=== PATIENT | female | born 1955 | race American Indian/Alaskan Native ===

== ENCOUNTER 2016-11-03 12:07 | Observation (INO) | payer BC ==
[2016-11-03] MEDS ORDERED: TYLENOL ONE ×2 (12:19→17:56)
[2016-11-03] MEDS ORDERED: TYLENOL PO ONE (12:22)
[2016-11-03 12:49] LABS: Basophils % (Auto) 0.6 % (0.0-1.8); Eosinophils % (Auto) 3.7 % (0.0-4.3); Hematocrit 36.1 % (30.3-42.9); Hemoglobin 11.8 gm/dl (10.1-14.3); Mean Corpuscular HGB Conc 33 % (30-34); Mean Corpuscular Hemoglobin 28 pg (28-32); Mean Corpuscular Volume 86 fl (79-97); Platelet Count 191 K/mm3 (140-440); Red Cell Distribution Width 15.5 % (13.2-15.2); White Blood Count 6.5 K/mm3 (4.5-11.0)
[2016-11-03 13:04] LABS: Anion Gap 18 mmol/L; BUN/Creatinine Ratio 24.28; Blood Urea Nitrogen 17 mg/dL (7-17); Carbon Dioxide 24 mmol/L (22-30); Chloride 104.1 mmol/L (98-107); Glucose 105 mg/dL (65-100); Potassium 3.7 mmol/L (3.6-5.0); Sodium 142 mmol/L (137-145)
[2016-11-03] MEDS ORDERED: NORMODYNE IV ONE (13:34)
[2016-11-03] MEDS ORDERED: ZOFRAN IV ONE (13:46)
--- NOTE | 2016-11-03 13:58 | Admit Criteria Form ---
Admission Criteria Documentation: CHEST PAIN Clinical Indications for Admission to Inpatient Care (Place 'X' for any and all applicable criteria): Admission is indicated for chest pain and ANY ONE of the following(1)(2)(3)(4)(5 ): [ ]I. Angina with acute coronary syndrome (Also use Myocardial Infarction or Angina guideline) [ ]II. Hemodynamic instability [ ]III. Angina needing acute intervention as indicated by ALL of the following( 11)(12): [ ]a) Unstable angina is present as indicated by angina that is ANY ONE of the following: [ ]i) New onset [ ]ii) Nocturnal [ ]iii) Prolonged at rest [ ]iv) Progressive [ ]b) Angina warrants acute intervention as indicated by ANY ONE of the following: [ ]i) Recurrent angina (e.g, not responding as previously to treatment) [ ]ii) Angina at rest or with low-level activities despite initial medical therapy [ ]iii) New or presumably new ST-segment depression on ECG [ ]iv) Signs or symptoms of heart failure (eg, dyspnea, pulmonary edema) [ ]v) New or worsening mitral regurgitation [ ]vi) Hemodynamic instability [ ]vii) Dangerous arrhythmia (eg, sustained ventricular tachycardia) [ ]viii) History of percutaneous coronary intervention within 6 months [ ]ix) History of coronary artery bypass graft surgery [ ]x) TABITHA risk score of 2 or greater[A] [ ]xi) History of Diabetes(14) [ ]xii) High-risk cardiac ischemia findings on noninvasive testing (e.g, echocardiogram, treadmill testing, nuclear scan) [ ]xiii) Chronic renal insufficiency (ie, estimated GFR less than 60 mL/min/1.732m) [ ]xiv) Left ventricular ejection fraction less than 40% [ ]IV. Evidence of TX (eg, cardiac biomarkers positive, ST-segment elevation on ECG) also use Myocardial Infarction Criteria Form. [ ]V. Pulmonary edema [ ]. Respiratory distress [ ]VII. Chest pain indicative of serious diagnosis other than coronary artery disease (eg, aortic dissection) [ ]VIII. Contraindications and/or Inappropriate clinical situations for Observational Care in patients with Chest Pain, when ANY ONE of the following is required: [ ]a) Patient with risk factor for pulmonary embolism, acute coronary syndrome and myocardial infarction (18) [ ]b) Patient with Pulmonary embolism require an average LOS of 4.3 days, therefore emergency department observation management is inappropriate 18,23 [ ]c) Painful condition/s in the elderly, have the highest rate of recidivism after emergency department observation management (10.8%) 20,21,22 [ ]d) Elevated cardiac biomarker requires intensive and exhaustive care (19) [X]IX. General contraindications and/or Inappropriate clinical situations for Observational Care in patients with Chest Pain, when ANY ONE of the following is required: [ ]a) Prediction of prolongation of LOS based on ANY ONE of the following may be considered as a contraindication for observational care 2, 3, 4, 5, 6, 7, 8, 9, 10, 11 [ ]i) Age > 65 yrs. [ ]ii) Patient arriving by ambulance [ ]iii) Patient with high acuity [ ]iv) Patient requiring vital sign monitoring [ ]v) Patient on IV medication [X]b) Systolic blood pressures 180mmHg 3,12 [ ]c) Patient with altered mental status including delirium and other alteration of consciousness, (3) [ ]d) Patient whose discharge disposition will be to a long term home or rehabilitation home should not be managed in Emergency Department Observation Unit. CMS rule requires 3 days hospital stay before such placement. 3,13 [ ]e) Patient with failure to thrive due to broad array of etiologies 3,16,17 [ ]f) Inability to ambulate 3,14 Extended stay beyond goal length of stay may be needed for (1)(28): [ ]a) Specific condition diagnosed after evaluation (eg, pulmonary embolism, aortic dissection) [ ]b) Unstable angina [ ]c) Continued suspicion of acute coronary syndrome with inability to complete needed cardiac evaluation (eg, patient clinically unable to undergo stress testing) [ ]d) Myocardial infarction (Contents from ANGINA and CHEST PAIN clinical indications for admission to inpatient care have been integrated in this form) The original [facility] content created by [employer] has been revised. The portions of the content which have been revised are identified through the use of italic text or in bold, and [facility] has neither reviewed nor approved the modified material. All other unmodified content is copyright [facility]. Please see references footnoted in the original [facility] edition 2016 Admission Criteria Met: Yes
--- NOTE | 2016-11-03 14:28 | Emergency Department Report ---
HPI - General Chief Complaint: Chest Pain Time Seen by Provider: 11/03/16 13:33 - HPI HPI: 61-year-old -[place] female presents the emergency department with complaint of midsternal chest pain with some radiation to the left chest that began this morning. She also began having a generalized headache with some dizziness and disequilibrium. She feels as if the room is spinning and also feels as if she is off balance when trying to walk. She denies any blurred vision, slurred speech, or any decreased muscle strength. Patient did not take anything for symptoms prior to presentation. 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 Patient arrived by EMS and received some breathing treatments in route. She denies any history of MN, CVA , PE/DVT. 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 denies: cough Cardiovascular: chest pain. denies: palpitations Gastrointestinal: nausea, vomiting. denies: abdominal pain Genitourinary: denies: urgency, dysuria, discharge Musculoskeletal: denies: back pain, joint swelling, arthralgia Skin: denies: rash, lesions Neurological: headache. denies: weakness, numbness Physical Exam - Physical Exam Vital Signs: Vital Signs 11/03/16 11/03/16 12:30 12:44 Temperature 98.8 F Pulse Rate 89 Respiratory 18 20 Rate Blood Pressure 209/107 [Right] O2 Sat by Pulse 98 Oximetry Physical Exam: GENERAL: The patient is well-developed well-nourished. HEENT: Normocephalic. Atraumatic. Extraocular motions are intact. Patient has moist mucous membranes. Pupils equal reactive to light bilaterally. No nystagmus. NECK: Supple. Trachea is midline. Patient has a trach and collar in place. CHEST/LUNGS: Clear to auscultation. There is no respiratory distress noted. Chest pain is not reproducible to palpation of chest wall. HEART/CARDIOVASCULAR: Regular. There is no tachycardia. There is no gallop rub or murmur. ABDOMEN: Abdomen is soft, nontender. Patient has normal bowel sounds. There is no abdominal distention. SKIN: There is no rash. There is no edema. There is no diaphoresis. NEURO: The patient is awake, alert, and oriented. The patient is cooperative. The patient has no focal neurologic deficits. MUSCULOSKELETAL: There is no tenderness or deformity. There is no limitation range of motion. There is no evidence of acute injury. ED Course Vital Signs 11/03/16 11/03/16 12:30 12:44 Temperature 98.8 F Pulse Rate 89 Respiratory 18 20 Rate Blood Pressure 209/107 [Right] O2 Sat by Pulse 98 Oximetry ED Medical Decision Making - Lab Data Result diagrams: 11/03/16 12:26 11/03/16 12:26 - EKG Data -: EKG Interpreted by Me EKG shows normal: sinus rhythm, axis, intervals, QRS complexes, ST-T waves Rate: normal - EKG Data When compared to previous EKG there are: previous EKG unavailable Interpretation: normal EKG - Radiology Data Radiology results: image reviewed interpreted by me: Chest x-ray did not show any acute process. Heart is normal shape and size. No effusions. No pneumothorax. No signs of pneumonia seen. CT of the head does not show any acute process including no hemorrhage, mass, shift, diffuse edema or skull fracture. - Medical Decision Making 61-year-old female presents with hypertensive urgency, generalized headache and chest pain that began this morning. EKG did not show any signs of ST elevation MN or ischemia. First troponin negative. Negative d-dimer. CT head does not show any bleed, shift, mass or any acute process. Chest x-ray does not show any acute process. However the patient has not had a stress test in any reasonable amount time and presents with substernal chest pain and hypertensive urgency. For these reasons patient will be admitted to the hospital for further evaluation and treatment. She has been accepted for admission by the hospitalist, Dr. Bell. - Differential Diagnosis MN, PE, CHF, tension headache, migraine, brain bleeds Critical Care Time: No Critical care attestation.: If time is entered above; I have spent that time in minutes in the direct care of this critically ill patient, excluding procedure time. ED Disposition Clinical Impression: Hypertensive urgency Headache Qualifiers: Headache type: unspecified Headache chronicity pattern: acute headache Intractability: not intractable Qualified Code(s): R51 - Headache Chest pain Qualifiers: Chest pain type: unspecified Qualified Code(s): R07.9 - Chest pain, unspecified Disposition: OP ADMITTED IP TO THIS HOSP Is pt being admited?: Yes Does the pt Need Aspirin: Yes Condition: Stable Instructions: Chest Pain (ED) Referrals: PRIMARY CARE, [Primary Care Provider] - 3-5 Days Time of Disposition: 15:38
--- NOTE | 2016-11-03 14:30 | XRay Report ---
Single view chest: History: Chest pain. Findings: Cardiomegaly. Trachea midline. Tip of tracheostomy tube in normal position. Mild pulmonary venous congestion. No consolidation or pleural effusion. Impression: Cardiomegaly with mild pulmonary venous congestion. The
--- NOTE | 2016-11-03 14:33 | Cat Scan Report ---
CT HEAD WITHOUT CONTRAST INDICATION: Dizziness, nausea, vomiting, headache. Evaluate for infarct. COMPARISON: None similar at this institution. FINDINGS: Noncontrast head CT demonstrates normal ventricles and sulci without acute or recent infarct, hemorrhage, mass effect or midline shift. No abnormal extra-axial fluid collections. Posterior fossa structures and basilar cisterns appear within normal limits. Symmetric eye globes. Slight leftward nasal septal bowing. Clear paranasal sinuses and mastoid air cells. Intact calvarium. Normal overlying scalp soft tissues. Edentulous jaw. CONCLUSION: No definite acute intracranial CT abnormality, as described. If focal neurologic deficits or strong clinical suspicion for an acute infarction exist, additional assessment as with MRI may be considered, as appropriate. Thank you for the opportunity to participate in this patient's care.
[2016-11-03] MEDS ORDERED: BABY ASPIRIN PO ONE (15:39)
[2016-11-03] MEDS ORDERED: BABY ASPIRIN ONE (17:56)
[2016-11-03] MEDS ORDERED: TYLENOL PO PRN (18:34)
[2016-11-03] MEDS ORDERED: MILK OF MAGNESIA PO PRN (18:34)
[2016-11-03] MEDS ORDERED: DUONEB 0.5 MG-3 MG/3 ML SOLN IH PRN (18:34)
[2016-11-03] MEDS ORDERED: ZOFRAN IV PRN (18:34)
[2016-11-03] MEDS ORDERED: DULCOLAX PR PRN (18:34)
[2016-11-03] MEDS ORDERED: MORPHINE IV PRN (18:48)
[2016-11-03] MEDS: PROTONIX PO SCH (18:55)
[2016-11-03] MEDS ORDERED: PROVENTIL IH PRN (19:07)
[2016-11-03] MEDS ORDERED: D5/0.45NS 1,000 ML IV SCH (20:00)
--- NOTE | 2016-11-03 20:08 | History and Physical Report ---
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 She describes the chest pain as sudden severe sharp midsternal and at this time she says the pain has eased off. She also began having a generalized headache with some dizziness . She feels as if the room is spinning and also feels as if she is off balance when trying to walk. She denies any blurred vision, slurred speech, or any decreased muscle strength. Patient did not take anything for symptoms prior to presentation. 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 Patient arrived by EMS and received some breathing treatments in route. She denies any history of HI, CVA, PE/DVT. Past History Past Medical History: GERD, hypothyroidism Past Surgical History: thyroidectomy, Other (permanent tracheostomy) Social history: no significant social history Family history: no significant family history Medications and Allergies Allergies Allergy/AdvReac Type Severity Reaction Status Date / Time codeine Allergy Unknown Verified 11/03/16 12:16 Home Medications Medication Instructions Recorded Confirmed Last Taken Type Hydrochlorothiazide [HCTZ] 25 mg PO DAILY 11/03/16 11/03/16 11/02/16 History Levothyroxine [Synthroid] 88 mcg PO DAILY 11/03/16 11/03/16 Unknown History Omeprazole [Omeprazole] 40 mg PO DAILY 11/03/16 11/03/16 Unknown History Proventil 0.083% NEBS 2 applic IH BID 11/03/16 11/03/16 Unknown History Active Meds: Active Medications Acetaminophen (Tylenol) 650 mg PO Q4H PRN PRN Reason: Pain MILD(1-3)/Fever >100.5/LAINEZ Albuterol (Proventil) 2.5 mg IH Q4HRT PRN PRN Reason: Shortness Of Breath Bisacodyl (Dulcolax) 10 mg [place] QDAY PRN PRN Reason: Constipation unrelieved by MOM Heparin Sodium (Porcine) (Heparin) 5,000 unit SUB-Q Q8HR WILLIAM Dextrose/Sodium Chloride (D5/0.45ns) 1,000 mls @ 75 mls/hr IV DIRECT [facility] Levothyroxine Sodium (Synthroid) 88 mcg PO DAILY@0600 [facility] Magnesium Hydroxide (Milk Of Magnesia) 30 ml PO Q4H PRN PRN Reason: Constipation Morphine Sulfate (Morphine) 2 mg IV Q4H PRN PRN Reason: Pain, Moderate (4-6) Last Admin: 11/03/16 18:56 Dose: 2 mg Ondansetron HCl (Zofran) 4 mg IV Q8H PRN PRN Reason: N/V unrelieved by Reglan Last Admin: 11/03/16 18:56 Dose: 4 mg Pantoprazole Sodium (Protonix) 40 mg PO DAILY [facility] Last Admin: 11/03/16 18:55 Dose: 40 mg Review of Systems Constitutional: no weight loss, no weight gain, no fever, no chills, no fatigue Ears, nose, mouth and throat: headache, vertigo, no ear pain, no nasal congestion, no sinus pressure, no sore throat Cardiovascular: chest pain (sharp midsternal ), lightheadedness, high blood pressure, no palpitations, no syncope, no dyspnea on exertion Respiratory: no cough, no shortness of breath Gastrointestinal: no abdominal pain, no nausea, no vomiting, no diarrhea, no constipation, no melena Genitourinary Female: no urge incontinence Menstruation: postmenopausal Rectal: no pain Musculoskeletal: no neck pain, no low back pain Integumentary: no rash Neurological: no seizures, no syncope Psychiatric: no anxiety, no depression Endocrine: no polyphagia, no excessive thirst, no polydipsia Exam - Constitutional Vitals: Temp Pulse Resp BP Pulse Ox 98.8 F 77 17 142/63 92 11/03/16 12:30 11/03/16 19:51 11/03/16 19:51 11/03/16 18:00 11/03/16 19:51 General appearance: Present: no acute distress, obese - EENT Eyes: Present: PERRL, EOM intact ENT: hearing intact, clear oral mucosa - Neck Neck: Present: supple, normal ROM. Absent: masses or JVD - Respiratory Respiratory effort: normal Respiratory: bilateral: CTA, negative: rhonchi, wheezing - Cardiovascular Rhythm: regular Heart Sounds: Present: S1 & S2 - Extremities Extremities: No edema - Abdominal General gastrointestinal: Present: soft, tender (moderate epigastric tenderness) , non-distended. Absent: hepatomegaly, splenomegaly - Rectal Rectal Exam: deferred - Integumentary Integumentary: Present: clear - Musculoskeletal Musculoskeletal: strength equal bilaterally - Neurologic Neurologic: no focal deficits, moves all extremities Results - Labs CBC & Chem 7: 11/03/16 12:26 11/03/16 12:26 Assessment and Plan - Patient Problems (1) Chest pain Current Visit: Yes Status: Acute Qualifiers: Chest pain type: unspecified Qualified Code(s): R07.9 - Chest pain, unspecified Plan to address problem: 2 sets of troponin levels were in the normal range EKG shows a heart rate of 72 bpm normal sinus rhythm We'll schedule the patient for stress thallium (2) Hypertension Current Visit: Yes Status: Acute Qualifiers: Hypertension type: H Plan to address problem: Well-controlled Joce hydrochlorothiazide (3) Headache Current Visit: Yes Status: Acute Qualifiers: Headache type: unspecified Headache chronicity pattern: acute headache Intractability: not intractable Qualified Code(s): R51 - Headache Plan to address problem: CT of the head findings reviewed We will start the patient on morphine as needed for headache and watch for any reaction (4) Hypothyroidism Current Visit: Yes Status: Chronic Qualifiers: Hypothyroidism type: H Plan to address problem: Continue Synthroid
[2016-11-03] MEDS ORDERED: DILAUDID IV PRN (21:42)
[2016-11-03] MEDS: HEPARIN SUB-Q SCH (22:20)
[2016-11-04] MEDS: HEPARIN SUB-Q SCH (05:56)
[2016-11-04] MEDS ORDERED: SYNTHROID PO SCH ×2 (06:00)
[2016-11-04 06:20] LABS: Anion Gap 17 mmol/L; Blood Urea Nitrogen 14 mg/dL (7-17); Calcium 8.5 mg/dL (8.4-10.2); Carbon Dioxide 25 mmol/L (22-30); Chloride 102.7 mmol/L (98-107); Glucose 100 mg/dL (65-100); Potassium 3.9 mmol/L (3.6-5.0); Sodium 141 mmol/L (137-145)
[2016-11-04] MEDS ORDERED: LEXISCAN IV ONE ×2 (08:11→08:24)
--- NOTE | 2016-11-04 09:39 | Consultation ---
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 Currently patient is chest pain free. Patient denies orthopnea, pnd, palpitations, or syncope. 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 Past History Past Medical History: GERD, hypothyroidism Past Surgical History: thyroidectomy, Other (permanent tracheostomy) Social history: no significant social history Family history: no significant family history Medications and Allergies Allergies Allergy/AdvReac Type Severity Reaction Status Date / Time codeine Allergy Unknown Verified 11/03/16 12:16 Home Medications Medication Instructions Recorded Confirmed Last Taken Type Hydrochlorothiazide [HCTZ] 25 mg PO DAILY 11/03/16 11/03/16 11/02/16 History Levothyroxine [Synthroid] 88 mcg PO DAILY 11/03/16 11/03/16 Unknown History Omeprazole [Omeprazole] 40 mg PO DAILY 11/03/16 11/03/16 Unknown History Proventil 0.083% NEBS 2 applic IH BID 11/03/16 11/03/16 Unknown History Active Meds: Active Medications Acetaminophen (Tylenol) 650 mg PO Q4H PRN PRN Reason: Pain MILD(1-3)/Fever >100.5/LAINEZ Albuterol (Proventil) 2.5 mg IH Q4HRT PRN PRN Reason: Shortness Of Breath Bisacodyl (Dulcolax) 10 mg [place] QDAY PRN PRN Reason: Constipation unrelieved by MOM Heparin Sodium (Porcine) (Heparin) 5,000 unit SUB-Q Q8HR WILLIAM Last Admin: 11/04/16 05:56 Dose: 5,000 unit Hydromorphone HCl (Dilaudid) 1 mg IV Q6H PRN PRN Reason: Pain Last Admin: 11/03/16 22:20 Dose: 1 mg Dextrose/Sodium Chloride (D5/0.45ns) 1,000 mls @ 75 mls/hr IV DIRECT WILLIAM Last Admin: 11/03/16 22:21 Dose: 75 mls/hr Levothyroxine Sodium (Synthroid) 88 mcg PO DAILY@0600 [facility] Last Admin: 11/04/16 05:56 Dose: 88 mcg Magnesium Hydroxide (Milk Of Magnesia) 30 ml PO Q4H PRN PRN Reason: Constipation Ondansetron HCl (Zofran) 4 mg IV Q8H PRN PRN Reason: N/V unrelieved by Reglan Last Admin: 11/03/16 18:56 Dose: 4 mg Pantoprazole Sodium (Protonix) 40 mg PO DAILY [facility] Last Admin: 11/03/16 18:55 Dose: 40 mg Physical Examination Vital Signs Temp Pulse Resp BP Pulse Ox 97.7 F 65 16 160/78 100 11/03/16 12:16 11/03/16 12:16 11/03/16 12:16 11/03/16 12:16 11/03/16 12:16 General appearance: no acute distress HEENT: Positive: PERRL Neck: Positive: neck supple, Other (trach in place) Cardiac: Positive: Reg Rate and Rhythm Lungs: Positive: Normal Exam Neuro: Positive: Grossly Intact Abdomen: Positive: Unremarkable, Soft Extremities: Present: normal Results 11/03/16 12:26 11/04/16 05:10 Comprehensive Metabolic Panel 11/04/16 Range/Units 05:10 Sodium 141 (137-145) mmol/L Potassium 3.9 (3.6-5.0) mmol/L Chloride 102.7 (98-107) mmol/L Carbon Dioxide 25 (22-30) mmol/L BUN 14 (7-17) mg/dL Creatinine 0.8 (0.7-1.2) mg/dL Glucose 100 (65-100) mg/dL Calcium 8.5 (8.4-10.2) mg/dL EKG interpretations - EKG Sinus rhythms and dysrhythmias: sinus rhythm Repolarization changes or abnormalities: nonspecific abnormality, ST segment, and/or T wave Assessment and Plan (1) Chest pain - atypical symptoms. troponin levels were in the normal range. EKG shows normal sinus rhythm with nonspecific STTW changes. Stress test today. (2) Hypertension - well controlled. continue current therapy. (3) Hypothyroidism - Continue Synthroid
--- NOTE | 2016-11-04 10:27 | Discharge Summary ---
Providers - Providers Date of Admission: 11/03/16 18:34 Date of discharge: 11/04/16 Attending physician: SAVI HARMAN MD Primary care physician: [employer] DIRECTOR Hospitalization Reason for admission: Chest pain Condition: Stable Disposition: DISCHARGED TO HOME OR SELFCARE Time spent for discharge: 31 minutes - Discharge Diagnoses (1) Bronchitis Status: Acute (2) Chest pain Status: Acute Qualifiers: Chest pain type: unspecified Qualified Code(s): R07.9 - Chest pain, unspecified (3) Headache Status: Acute Qualifiers: Headache type: unspecified Headache chronicity pattern: acute headache Intractability: not intractable Qualified Code(s): R51 - Headache (4) Hypertension Status: Acute Qualifiers: Hypertension type: H (5) Hypothyroidism Status: Chronic Qualifiers: Hypothyroidism type: H Core Measure Documentation - Palliative Care Palliative Care/ Comfort Measures: Not Applicable - Core Measures Any of the following diagnoses?: none Exam - Physical Exam Narrative exam: Not in cardiopulmonary distress. The patient appeared well nourished and normally developed. Vital signs as documented. Head exam is unremarkable. No scleral icterus . Neck trach in place. Lungs scattered wheezing. Cardiac exam reveals regular rate and Rhythm. First and second heart sounds normal. No murmurs, rubs or gallops. Abdominal exam reveals normal bowel sounds, no masses, no organomegaly and no aortic enlargement. Extremities are nonedematous and both femoral and pedal pulses are normal. [employer]: Alert and oriented 3. No focal weakness. - Constitutional Vitals: Temp Pulse Resp BP Pulse Ox 98.4 F 84 22 155/78 97 11/04/16 07:32 11/04/16 09:12 11/04/16 07:32 11/04/16 09:12 11/04/16 07:32 Plan Activity: no restrictions Diet: low cholesterol, low salt Follow up with: PRIMARY CARE, [Primary Care Provider] - 3-5 Days Prescriptions: Acetaminophen [Acetaminophen TAB] 650 mg PO Q4H PRN #15 tablet PRN Reason: Pain MILD(1-3)/Fever >100.5/LAINEZ Azithromycin [Zithromax] 250 mg PO DAILY #6 tablet Hydrochlorothiazide [HCTZ] 25 mg PO DAILY #30 tablet Levothyroxine [Synthroid] 88 mcg PO DAILY #30 tablet Omeprazole 40 mg PO DAILY #30 capsule.dr Gunter 0.083% NEBS 2 applic IH BID #60
[2016-11-04] MEDS: PROTONIX PO SCH (10:31)
[2016-11-04 12:54] VITALS: BP 189/81
--- NOTE | 2016-11-04 13:00 | Event Note ---
Date: 11/04/16 Nuclear stress test performed Preliminary report No significant ischemia seen on exam EF 73% Final report to follow
--- NOTE | 2016-11-06 13:54 | Treadmill Report ---
THALLIUM STRESS TEST LEFT VENTRICLE: Left ventricular chamber size is within normal. Perfusion study demonstrates homogeneous uptake of the tracer in all segments, no significant perfusion defects identified. Gated analysis demonstrates normal left ventricular systolic function, ejection fraction 73%. CONCLUSION: Normal myocardial perfusion study. JOB# [id number] CA/NTS
== END 2016-11-04 14:00 | disposition home or self-care (01) ==
LOC: ED 12:07 → 4A 18:34
PROVIDERS: ADMIT Internal Medicine; ATTEND Internal Medicine
DX: I10 Essential (primary) hypertension (principal); R51 Headache; E03.9 Hypothyroidism, unspecified; R07.89 Other chest pain; K21.9 Gastro-esophageal reflux disease without esophagitis; Z87.898 Personal history of other specified conditions; J20.9 Acute bronchitis, unspecified
CPT/HCPCS: 36415; 70450; 71010; 78452; 80048; 84484; 85025; 85379; 93005; 93010; 93017; 96361; 96372; 96374; 96375; 96376; 99285; A9502; G0378; J1170; J1644; J2270; J2405; J2785

== ENCOUNTER 2017-09-07 10:52 | Outpatient (CLI) | payer OTHER ==
--- NOTE | 2017-09-07 14:13 | Mammography Report ---
BILATERAL DIGITAL SCREENING MAMMOGRAM with CAD: 09/07/17 CLINICAL: Routine screening. COMPARISON:None available. However, a prior mammogram was apparently done at [facility] FINDINGS: The breasts are mostly fatty. Bilateral frontal asymmetries require comparison with the prior mammogram or additional imaging.No architectural distortion or suspicious calcifications.A heavily calcified benign 2 cm left inner posterior mass. IMPRESSION: Bilateral asymmetries requiring further evaluation. BI-RADS CATEGORY: 0 -- Additional Evaluation Required RECOMMENDATION: Comparison with a previous mammogram. We will attempt to obtain a prior mammogram for comparison. If we do not obtain a prior mammogram within 30 days, a revised report will be issued recommending a recall for additional imaging. Please be advised that the patient should not schedule an appointment for return until adequate time (at least 2 weeks) has passed for us to obtain the prior mammogram. ACR BI-RADS MAMMOGRAPHIC CODES: 0 = Needs additional imaging evaluation; 1 = Negative; 2 = Benign; 3 = Probably benign; 4 = Suspicious; 5 = Malignant; 6 = Known biopsy-proven malignancy COMMENT: 1. Dense breast tissue, i.e., adenosis, fibrocystic changes, etc., may obscure an underlying neoplasm. 2. Approximately 10% of cancers are not detected with mammography. 3. A negative mammography report should not delay biopsy if a clinically suspicious mass is present. COMMENT: Patient follow-up letters are generated via our [employer] application.
== END 2017-09-07 10:53 | disposition home or self-care (01) ==
LOC: SPVWC 10:52
PROVIDERS: ATTEND Physician Assistant
DX: Z12.31 Encounter for screening mammogram for malignant neoplasm of breast (principal)
CPT/HCPCS: 77067

== ENCOUNTER 2017-09-12 09:50 | Outpatient (CLI) | payer OTHER ==
--- NOTE | 2017-09-12 15:23 | XRay Report ---
XRAY LEFT KNEE 4 THREE VIEWS: 09/12/17 CLINICAL: Left knee pain. FINDINGS: Mild left osteopenia. Osteoarthritis with near-complete loss of the medial joint space and large medial osteophytes. Small inferior lateral osteophyte with a normal lateral joint space. Patellofemoral joint arthritis with small osteophytes. A small quadriceps insertion enthesophyte. No fracture or dislocation. No joint effusion.Normal soft tissues. IMPRESSION: Moderate osteoarthritis and quadriceps enthesopathy.
== END 2017-09-12 09:51 | disposition home or self-care (01) ==
LOC: SPVIMAG 09:50
PROVIDERS: ATTEND Orthopaedic Surgery
DX: M17.12 Unilateral primary osteoarthritis, left knee (principal); M85.862 Other specified disorders of bone density and structure, left lower leg; M76.892 Other specified enthesopathies of left lower limb, excluding foot

== ENCOUNTER 2017-10-15 13:23 | Outpatient (CLI) | payer OTHER ==
--- NOTE | 2017-10-16 16:38 | Mammography Report ---
BILATERAL DIGITAL DIAGNOSTIC MAMMOGRAM and BILATERAL BREAST ULTRASOUND: 10/15/17 13:23:00 CLINICAL: Recalled for bilateral asymmetries. COMPARISON:09/07/17 screening mammogram. Were unable to locate prior mammograms. FINDINGS: Bilateral spot compression views were performed and demonstrate persistent bilateral low density focal asymmetries. Ultrasound of the right breast (including all four quadrants and the retroareolar area) was performed. An irregular solid hypoechoic mass at 2 o'clock 7.5 cm from the nipple measures 7 x 6 x 7 mm. The shape is similar to a mammographic asymmetry at 12 o'clock but the mammographic asymmetry is also significantly larger at approximately 2 cm. An oval relatively smooth complex cyst versus solid nodule at 12 o'clock 7 cm from the nipple measures 4 x 3 x 5 mm. It demonstrates mild edge shadowing. Ultrasound of the left breast (including all four quadrants and the retroareolar area) was performed. An oval slightly irregular solid hypoechoic shadowing mass versus fat lobule at 12 o'clock 5 cm from the nipple measures 1.3 x 0.5 x 1.4 cm. This mass is larger and has a different shape from the mammographic asymmetry. A densely shadowing mass at 6 o'clock 5 cm from the nipple measures 1.9 cm maximum and correlates with a heavily calcified mass on the mammogram. IMPRESSION: Probably benign bilateral mammographic asymmetry and probably benign bilateral breast masses by ultrasound. Recommend six month followup bilateral mammogram and bilateral breast ultrasound. BI-RADS CATEGORY: 3 - - Probably Benign ACR BI-RADS MAMMOGRAPHIC CODES: 0 = Needs additional imaging evaluation; 1 = Negative; 2 = Benign; 3 = Probably benign; 4 = Suspicious; 5 = Malignant; 6 = Known biopsy-proven malignancy COMMENT: 1. Dense breast tissue, i.e., adenosis, fibrocystic changes, etc., may obscure an underlying neoplasm. 2. Approximately 10% of cancers are not detected with mammography. 3. A negative mammography report should not delay biopsy if a clinically suspicious mass is present. COMMENT: Patient follow-up letters are generated via our [employer] application.
== END 2017-10-15 13:24 | disposition home or self-care (01) ==
LOC: SPVWC 13:23
PROVIDERS: ATTEND Family Medicine
DX: R92.8 Other abnormal and inconclusive findings on diagnostic imaging of breast (principal); I10 Essential (primary) hypertension; J45.909 Unspecified asthma, uncomplicated; J18.9 Pneumonia, unspecified organism
CPT/HCPCS: 77066

== ENCOUNTER 2018-04-17 09:25 | Outpatient (CLI) | payer OTHER ==
--- NOTE | 2018-04-17 14:03 | Mammography Report ---
BILATERAL DIGITAL DIAGNOSTIC MAMMOGRAM with CAD and BILATERAL BREAST ULTRASOUND: 04/17/18 09:25:00 CLINICAL: Followup bilateral mammographic asymmetries and bilateral ultrasound masses. COMPARISON:10/15/17 FINDINGS: The breasts are mostly fatty stable bilateral parenchymal asymmetries.No new mass, architectural distortion or suspicious calcifications. Ultrasound the right breast demonstrated a stable solid mass at 12 o'clock 7 cm from the nipple measuring 5 x 4 x 5 mm. The previously described irregular hypoechoic lesion at 2 o'clock 7 cm from the nipple is less prominent and measures approximately 7 x 8 mm. Ultrasound of the left breast demonstrated a stable oval solid hypoechoic smooth mass at 11:30 o'clock 5 cm from the nipple measuring 1.3 x 1.2 x 0.6 cm. A stable heavily calcified mass at 6 o'clock 5 cm from the nipple measures 2.1 x 1.9 x 2.2 cm. IMPRESSION: Stable bilateral mammographic asymmetries and masses by ultrasound. BI-RADS CATEGORY: 2 - - Benign RECOMMENDATION: Routine mammographic screening in one year. ACR BI-RADS MAMMOGRAPHIC CODES: 0 = Needs additional imaging evaluation; 1 = Negative; 2 = Benign; 3 = Probably benign; 4 = Suspicious; 5 = Malignant; 6 = Known biopsy-proven malignancy COMMENT: 1. Dense breast tissue, i.e., adenosis, fibrocystic changes, etc., may obscure an underlying neoplasm. 2. Approximately 10% of cancers are not detected with mammography. 3. A negative mammography report should not delay biopsy if a clinically suspicious mass is present. COMMENT: Patient follow-up letters are generated by our [employer] application.
== END 2018-04-17 09:26 | disposition home or self-care (01) ==
LOC: SPVWC 09:25
PROVIDERS: ATTEND Family Medicine
DX: R92.2 Inconclusive mammogram (principal); I10 Essential (primary) hypertension; E03.9 Hypothyroidism, unspecified; J45.909 Unspecified asthma, uncomplicated; Z87.891 Personal history of nicotine dependence; Z90.710 Acquired absence of both cervix and uterus; Z90.49 Acquired absence of other specified parts of digestive tract
CPT/HCPCS: 77066

== ENCOUNTER 2018-09-09 10:48 | Outpatient (CLI) | payer OTHER ==
--- NOTE | 2018-09-09 12:44 | Mammography Report ---
Bilateral mammogram: Compared to 09/07/17 and 04/17/18. CAD study utilized. Findings: Predominance adipose tissue bilaterally. Benign densities bilaterally without significant interval change. Benign calcifications bilaterally without significant interval change. Normal axilla. No microcalcifications Impression: Benign findings. Annual followup recommended. BI-RADS CATEGORY: 2 = Benign ACR BI-RADS MAMMOGRAPHIC CODES: 0 = Needs additional imaging evaluation; 1 = Negative; 2 = Benign; 3 = Probably benign; 4 = Suspicious; 5 = Malignant; 6 = Known biopsy-proven malignancy COMMENT: 1. Dense breast tissue, i.e., adenosis, fibrocystic changes, etc., may obscure an underlying neoplasm. 2. Approximately 10% of cancers are not detected with mammography. 3. A negative mammography report should not delay biopsy if a clinically suspicious mass is present. COMMENT: Patient follow-up letters are generated in [employer].
== END 2018-09-09 10:49 | disposition home or self-care (01) ==
LOC: SPVWC 10:48
PROVIDERS: ATTEND Family Medicine
DX: Z12.31 Encounter for screening mammogram for malignant neoplasm of breast (principal); E03.9 Hypothyroidism, unspecified; I10 Essential (primary) hypertension; J45.909 Unspecified asthma, uncomplicated; Z90.710 Acquired absence of both cervix and uterus; Z90.49 Acquired absence of other specified parts of digestive tract
CPT/HCPCS: 77067